=== PATIENT | female | born 1995 | race Caucasian/White ===

== ENCOUNTER 2017-05-01 16:38 | Emergency (ER) | payer OTHER ==
[2017-05-01 16:48] VITALS: PULSE 80
--- NOTE | 2017-05-01 16:58 | PDOC ---
History of Present Illness - General History Source: Patient Exam Limitations: No Limitations - History of Present Illness Initial Comments: 05/01/17 17:15 The patient is a 21-year-old female with a significant past medical history of asthma as a child, who presents to the emergency department with worsening chest pain and difficulty breathing for 5 days. She describes the discomfort as a chest pressure, and she feels she has to breathe faster for relief. She reports associated orthopnea last night. She has not taken any medications for relief. She denies recent travel or sick contacts. She denies use of oral contraceptives. The patient denies sore throat, cough, palpitations, headache and dizziness. The patient denies fever, chills, nausea, vomit, diarrhea and constipation. The patient denies dysuria, frequency, urgency and hematuria. LMP: 03/31/17 Allergies: NKDA Past Surgical History: None reported Social History: No toxic habits reported Family PMHx: mother had unprovoked DVT and PE <Jessica Flores - Last Filed: 05/01/17 17:19> <Nakia Osuna - Last Filed: 05/01/17 18:58> <Caitlin Benson - Last Filed: 05/03/17 02:47> - General Chief Complaint: Respiratory Stated Complaint: S.O.B Time Seen by Provider: 05/01/17 16:58 Past History <Jessica Flores - Last Filed: 05/01/17 17:19> - Past Medical History Anemia: Yes Asthma: Yes COPD: No - Immunization History Immunization Up to Date: Yes - Suicide/Smoking/Psychosocial Hx Smoking Status: No Smoking History: Never smoked Number of Cigarettes Smoked Daily: 0 Hx Alcohol Use: No Drug/Substance Use Hx: No Substance Use Type: None <Nakia Osuna - Last Filed: 05/01/17 18:58> <Caitlin Benson - Last Filed: 05/03/17 02:47> - Past Medical History Allergies/Adverse Reactions: Allergies Allergy/AdvReac Type Severity Reaction Status Date / Time No Known Allergies Allergy Verified 05/01/17 16:48 Home Medications: Ambulatory Orders NK [No Known Home Medication] 05/01/17 Review of Systems - Review of Systems Able to Perform ROS?: Yes Comments:: 12/02/17 17:18 CONSTITUTIONAL: Pt denies fever, chills, weakness HEENT: denies visual changes, sore throat, ear pain RESPIRATORY: (+) dyspnea. denies cough, hemoptysis CARDIOVASCULAR: (+) chest pressure. denies palpitations, lightheadedness, leg swelling GI: denies abdominal pain, nausea, vomiting, diarrhea, constipation, blood per rectum, melena : denies dysuria, frequency, discharge MUSCULOSKELETAL: denies back pain, joint swelling, myalgias SKIN: denies bruising, erythema, rash NEUROLOGICAL: denies headache, numbness, focal weakness, tingling, ataxia, weakness HEMATOLOGIC: denies anemia, easy bruising, easy bleeding <Flores,Jessica - Last Filed: 05/01/17 17:19> *Physical Exam - Vital Signs Last Vital Signs Temp Pulse Resp BP Pulse Ox 98.6 F 80 20 121/71 100 05/01/17 16:45 05/01/17 16:45 05/01/17 16:45 05/01/17 16:45 05/01/17 16:45 - Physical Exam Comments: 05/01/17 17:18 GENERAL: The patient is awake, alert, and fully oriented, Nontoxic - in no acute distress. HEAD: Normocephalic, atraumatic. EYES: extraocular movements intact, sclera anicteric, conjunctiva clear. ENT: Normal voice, moist mucous membranes. NECK: Normal range of motion, supple without lymphadenopathy, JVD, or masses. LUNGS: Breath sounds equal, clear to auscultation bilaterally. No wheezes, no crackles, no rales. HEART: Regular rate and rhythm, normal S1 and S2 without murmur, rub or gallop. ABDOMEN: Soft, nontender, normoactive bowel sounds. No guarding, no rebound. No masses. EXTREMITIES: Normal range of motion, no edema. No clubbing or cyanosis. No cords , erythema, or tenderness. NEUROLOGICAL: Fully Oriented, Alert, Normal Mood/Affect, Motor Strength 5/5. No facial asymmetry, Normal speech SKIN: Warm, Dry, normal turgor, no rashes or lesions noted. <Flores,Jessica - Last Filed: 05/01/17 17:19> - Vital Signs Last Vital Signs Temp Pulse Resp BP Pulse Ox 98.6 F 80 20 121/71 100 05/01/17 16:45 05/01/17 16:45 05/01/17 16:45 05/01/17 16:45 05/01/17 16:45 <Nakia Osuna - Last Filed: 05/01/17 18:58> - Vital Signs Last Vital Signs Temp Pulse Resp BP Pulse Ox 98.6 F 80 20 121/71 100 05/01/17 16:45 05/01/17 16:45 05/01/17 16:45 05/01/17 16:45 05/01/17 16:45 <Caitlin Benson - Last Filed: 05/03/17 02:47> Heart Score/ECG Review - History History: Slightly suspicious - Electrocardiogram EKG: Non specific repolarization disturbance - Risk Factors Based on the list above the patient has:: No risk factors known - ECG Intrepretation Rhythm: PVC(s) (sr at 79 with pvc slightly irregular nl axis) <Nkaia Osuna - Last Filed: 05/01/17 18:58> ED Treatment Course - LABORATORY CBC & Chemistry Diagram: 05/01/17 17:30 05/01/17 17:21 <Nakia Osuna - Last Filed: 05/01/17 18:58> - LABORATORY CBC & Chemistry Diagram: 05/01/17 17:30 05/01/17 17:21 - ADDITIONAL ORDERS Additional order review: Laboratory Results 05/01/17 05/01/17 05/01/17 17:30 17:30 17:21 D-Dimer 204 Sodium Potassium Chloride Carbon Dioxide Anion Gap BUN Creatinine Creat Clearance w eGFR Random Glucose Calcium Total Bilirubin AST ALT Alkaline Phosphatase Creatine Kinase Cancelled Troponin I Cancelled Total Protein Albumin Urine HCG, Qual Negative 05/01/17 17:21 D-Dimer Sodium 139 Potassium 4.0 Chloride 107 Carbon Dioxide 27 Anion Gap 5 L BUN 11 Creatinine 0.5 L Creat Clearance w eGFR > 60 Random Glucose 92 Calcium 8.5 Total Bilirubin 0.2 AST 13 L ALT 20 Alkaline Phosphatase 94 Creatine Kinase 75 Troponin I < 0.02 Total Protein 7.4 Albumin 3.6 Urine HCG, Qual 05/01/17 17:30 RBC 4.54 MCV 70.6 L MCHC 32.0 RDW 15.9 H MPV 9.2 Neutrophils % 52.7 Lymphocytes % 37.1 Monocytes % 7.6 Eosinophils % 1.9 Basophils % 0.7 - Medications Given in the ED: ED Medications Discontinued Medications Generic Name Dose Route Start Last Admin Trade Name Emmett PRN Reason Stop Dose Admin Albuterol/Ipratropium 1 amp 05/01/17 17:15 05/01/17 18:00 Duoneb - NEB 05/01/17 18:01 Not Given Q15M DEYSI <Caitlin Benson - Last Filed: 05/03/17 02:47> Medical Decision Making - Medical Decision Making 05/01/17 17:14 I, Dr. Nakia Osuna, attest that the scribes documentation that appears above has been prepared under my direction and personally reviewed by me. I confirmed that the note above accurately reflects all work, treatment, procedures, and medical decision-making performed by me. 05/01/17 18:59 Pt is feeling better but d dimer is pending xray appears negative will endorse to on coming physician to f/u labs and make final disposition <Nakia Osuna - Last Filed: 05/01/17 18:58> - Medical Decision Making 05/03/17 02:46 Labs are normal. Pt is stable to go home. <Caitlin Benson - Last Filed: 05/03/17 02:47> *DC/Admit/Observation/Transfer - Attestations Scribe Attestion: 05/01/17 17:18 Documentation prepared by Jessica Flores, acting as medical file clerk for Nakia Osuna MD/. <Jessica Flores - Last Filed: 05/01/17 17:19> <Nakia Osuna - Last Filed: 05/01/17 18:58> - Discharge Dispostion Admit: No <Caitlin Benson - Last Filed: 05/03/17 02:47> Diagnosis at time of Disposition: Atypical chest pain - Discharge Dispostion Disposition: HOME Condition at time of disposition: Stable - Referrals Referrals: STAFF,NOT ON [Primary Care Provider] - - Patient Instructions Printed Discharge Instructions: DI for Atypical Chest Pain - Post Discharge Activity
[2017-05-01] MEDS: ALBUTEROL SO4 2.5/IPRATROPIUM 0.5 INH SOL 3 ML VIAL.NEB. NEB SCH ×4 (17:15→18:00)
[2017-05-01 17:39] LABS: BASOPHIL 0.7 % (0-2.0); EOSINOPHIL 1.9 % (0-4.5); MCH 22.6 pg (25.7-33.7); MEAN CELL VOLUME 70.6 fl (80-96); MEAN PLT VOLUME 9.2 fl (7.5-11.1); NEUTROPHILS 52.7 % (42.8-82.8); PLATELET COUNT 276 K/MM3 (134-434); RDW 15.9 % (11.6-15.6); WHITE BLOOD COUNT 6.5 K/mm3 (4.0-10.0)
[2017-05-01 18:28] LABS: ALBUMIN 3.6 g/dl (3.4-5.0); ANION GAP 5 (8-16); BILIRUBIN,TOTAL 0.2 mg/dL (0.2-1.0); CALCIUM 8.5 mg/dL (8.5-10.1); CO2 27 mmol/L (21-32); CREATININE 0.5 mg/dL (0.55-1.02); GLUCOSE,RANDOM 92 mg/dL (74-106); SGOT/AST 13 U/L (15-37); TOT PROT 7.4 g/dl (6.4-8.2)
[2017-05-01 18:39] LABS: ALK PHOS 94 U/L (45-117); CPK 75 IU/L (26-192); SGPT/ALT 20 U/L (12-78); TROPONIN I < 0.02 ng/ml (0.00-0.05)
[2017-05-01 19:48] VITALS: BP 121/70; TEMP 98.4
--- NOTE | 2017-05-02 08:44 | EKG ---
Test Reason : Blood Pressure : / mmHG Vent. Rate : 079 BPM Atrial Rate : 079 BPM P-R Int : 140 ms QRS Dur : 098 ms QT Int : 378 ms P-R-T Axes : 050 059 052 degrees QTc Int : 433 ms SINUS RHYTHM WITH SINUS ARRHYTHMIA WITH OCCASIONAL PREMATURE VENTRICULAR COMPLEXES OTHERWISE NORMAL ECG NO PREVIOUS ECGS AVAILABLE Confirmed by HENRI DIAZ MD ([id number]) on 05/02/2017 8:44:08 AM Referred By: Confirmed By:HENRI DIAZ MD
== END 2017-05-01 19:54 | disposition home or self-care (01) ==
LOC: JER 16:38
DX: R07.89 Other chest pain (principal); J45.909 Unspecified asthma, uncomplicated
CPT/HCPCS: 36415; 71020-TC; 80053; 82550; 84484; 84703; 85025; 85379; 93005; 93010; 99284-25